=== PATIENT | male | born 1970 | race American Indian/Alaskan Native ===

== ENCOUNTER 2016-08-11 00:59 | Emergency (ER) | payer SELFPAY ==
--- NOTE | 2016-08-11 01:59 | Cat Scan Report ---
FINAL REPORT PROCEDURE: CT HEAD/BRAIN WO CON TECHNIQUE: Computerized tomography of the head was performed without contrast material. HISTORY: headache COMPARISON: No prior studies are available for comparison. FINDINGS: Skull and scalp: Normal. Paranasal sinuses: There is moderate opacification of the ethmoid and sphenoid sinuses.. Ventricles and subarachnoid spaces: Normal. Cerebrum: No evidence of hemorrhage, acute infarction or mass . Cerebellum and brainstem: No evidence of hemorrhage, acute infarction or mass. Vasculature: Normal. Comments: None. IMPRESSION: There is no evidence of an acute intracranial process. Mild sinusitis as described.
--- NOTE | 2016-08-11 03:05 | Emergency Department Report ---
ED Headache HPI - General Chief Complaint: Headache Stated Complaint: HEADACHE Time Seen by Provider: 08/11/16 02:27 - History of Present Illness Initial Comments: 46-year-old male past medical history migraine headaches, hypertension presents with complaint of 3-1/2 weeks of anterior throbbing headache. Patient is awake alert and oriented 3 does not appear to be in acute distress no nausea no vomiting denies any fever or chills no blurry vision no photo or phonophobia no neck rigidity reported by the patient. Patient is cooperative, fully lucid and able to answer all my questions. Denies any chest pain shortness of breath no nausea no vomiting no palpitations no abdominal pain. Denies any head or neck trauma. States that he occasionally experiences headaches of this quality but this episode has been ongoing for nearly 3 weeks. pt states she has been taking Tylenol with minimal relief of his headache. Patient states he has been taking Tylenol with minimal relief of his headache. Patient also states that he has not been taking his blood pressure medicines and nearly 4 months self DC' d them several months ago because he did not want to take them anymore. Patient 's blood pressure is slightly elevated. Timing/Duration: other (3 weeks) Quality: moderate Head Injury Location: frontal Recent Head Trauma: frequent headaches Allergies/Adverse Reactions: Allergies No Known Allergies Allergy (Unverified 08/11/16 01:24) Home Medications: Ambulatory Orders Naproxen [Naproxen TAB] 250 mg PO BID PRN #20 tablet 08/11/16 amLODIPine [Norvasc] 5 mg PO DAILY #30 tab 08/11/16 ED Review of Systems ROS: Stated complaint: HEADACHE Other details as noted in HPI Constitutional: denies: chills, fever Eyes: denies: eye pain, eye discharge, vision change ENT: denies: ear pain, throat pain Respiratory: denies: cough, shortness of breath, wheezing Cardiovascular: denies: chest pain, palpitations Endocrine: no symptoms reported Gastrointestinal: denies: abdominal pain, nausea, diarrhea Genitourinary: denies: urgency, dysuria Musculoskeletal: denies: back pain, joint swelling, arthralgia Skin: denies: rash, lesions Neurological: headache (patient states that he experiences headaches periodically a few times throughout the year that last for several weeks). denies: weakness, paresthesias Psychiatric: denies: anxiety, depression Hematological/Lymphatic: denies: easy bleeding, easy bruising ED Past Medical Hx - Past Medical History Previous Medical History?: No - Surgical History Past Surgical History?: No - Social History Smoking Status: Current Every Day Smoker Substance Use Type: None - Medications Home Medications: Home Medications Medication Instructions Recorded Confirmed Last Taken Type Naproxen [Naproxen TAB] 250 mg PO BID PRN #20 tablet 08/11/16 Unknown Rx amLODIPine [Norvasc] 5 mg PO DAILY #30 tab 08/11/16 Unknown Rx ED Physical Exam - General Limitations: No Limitations General appearance: alert, in no apparent distress - Head Head exam: Present: atraumatic, normocephalic - Eye Eye exam: Present: normal appearance, PERRL, EOMI - ENT ENT exam: Present: mucous membranes moist - Neck Neck exam: Present: normal inspection, full ROM - Respiratory Respiratory exam: Present: normal lung sounds bilaterally. Absent: respiratory distress - Cardiovascular Cardiovascular Exam: Present: regular rate, normal rhythm. Absent: systolic murmur, diastolic murmur, rubs, gallop - GI/Abdominal GI/Abdominal exam: Present: soft, normal bowel sounds - Rectal Rectal exam: Present: deferred - Extremities Exam Extremities exam: Present: normal inspection - Back Exam Back exam: Present: normal inspection, full ROM - Neurological Exam Neurological exam: Present: alert, oriented X3, CN II-XII intact, normal gait - Expanded Neurological Exam Expanded Patient oriented to: Present: person, place, time Cranial nerves: EOM's Intact: Normal, Tongue Deviation: Normal, Facial Sensation : Normal Cerebellar function: Finger to Nose: Normal, Heel to [place]: Normal, [place]: Normal Upper motor neuron: [place] Neglect: Normal, Pronator Drift: Normal Sensory exam: Upper Extremity Light Touch: Normal, Upper Extremity Pin Prick: Normal, Lower Extremity Light Touch: Normal, Lower Extremity Pin Prick: Normal Motor strength exam: RUE: 5, LUE: 5, RLE: 5, LLE: 5 DTR: bicep (R): 3+, bicep (L): 3+, tricep (R): 3+, tricep (L): 3+, knee (R): 3+ , knee (L): 3+, ankle (R): 3+, ankle (L): 3+ Best Eye Response ([place]): (4) open spontaneously Best Motor Response ([place]): (6) obeys commands Best Verbal Response ([place]): (5) oriented [place] Total: 15 - Psychiatric Psychiatric exam: Present: normal affect, normal mood - Skin Skin exam: Present: warm, dry, intact, normal color. Absent: rash ED Course Vital Signs 08/11/16 01:25 Temperature 98.2 F Pulse Rate 78 Respiratory 18 Rate Blood Pressure 155/104 O2 Sat by Pulse 97 Oximetry ED Medical Decision Making - Medical Decision Making A/P: Migraine headache, hypertension 1-case discussed with Dr. Matamoros 2-CT scan shows no abnormality 3-patient has no neurological deficits on clinical exam chest pain no palpitations no shortness of breath no pronator drift strength 5 out of 5 all extremities distal pulses intact, cranial nerves I through XII grossly intact no blurred vision vision is 20/20. Patient has no clinical signs of CVA 4-we'll give patient referral for primary care follow-up. I will restart patient on his amlodipine 5 mg daily until he can be seen by a primary care doctor 5-naproxen when necessary for headache 6- Critical care attestation.: If time is entered above; I have spent that time in minutes in the direct care of this critically ill patient, excluding procedure time. ED Disposition Clinical Impression: Headache Qualifiers: Headache type: unspecified Headache chronicity pattern: episodic headache Intractability: not intractable Qualified Code(s): R51 - Headache Hypertension Qualifiers: Hypertension type: unspecified secondary hypertension Qualified Code(s): I15.9 - Secondary hypertension, unspecified Disposition: DISCHARGED TO HOME OR SELFCARE Is pt being admited?: No Does the pt Need Aspirin: No Condition: Stable Instructions: Migraine Headache (ED), Acute Headache (ED), Hypertension (ED) Prescriptions: amLODIPine [Norvasc] 5 mg PO DAILY #30 tab Naproxen [Naproxen TAB] 250 mg PO BID PRN #20 tablet PRN Reason: Headache Referrals: [facility] [place] [Provider Group] - 3-5 Days [facility] [Outside] - 3-5 Days GLEN WARREN MD [Staff Physician] - 3-5 Days Forms: Accompanied Note, Work/School Release Form(ED) Time of Disposition: 03:11
[2016-08-11] MEDS ORDERED: NORVASC PO ONE (03:08)
[2016-08-11] MEDS ORDERED: MOTRIN PO ONE (03:08)
[2016-08-11 03:28] VITALS: BP 137/87
== END 2016-08-11 03:28 | disposition home or self-care (01) ==
LOC: ED 00:59
DX: G43.909 Migraine, unspecified, not intractable, without status migrainosus (principal); I15.9 Secondary hypertension, unspecified; F17.200 Nicotine dependence, unspecified, uncomplicated
CPT/HCPCS: 70450